=== PATIENT | male | born 1950 | race Caucasian/White ===

== ENCOUNTER 2019-05-21 00:18 | Observation (INO) ==
[2019-05-21] MEDS ORDERED: Isovue-370 500 ML BOTTLE IVP ONE ×2 (00:22→06:22)
[2019-05-21 00:53] LABS: Basophils % 0.5 %; Eosinophils % 0.9 %; Hematocrit 42.4 % (37.5-50.1); Hemoglobin 14.6 g/dL (12.9-16.9); Immature Granulocytes % 0.5 % (0-4); Lymphocytes % 23.6 %; Mean Corpuscular HGB Conc 34.4 g/dL (31.6-35.5); Mean Corpuscular Hemoglobin 29.4 pg (28.0-33.3); Mean Corpuscular Volume 85.3 fL (83.0-100.0); Mean Platelet Volume 8.7 fL (9.4-12.4); Monocytes # 0.5 K/mcL (0.0-1.3); Monocytes % 11.3 %; Neutrophils # 2.7 K/mcL (1.6-8.9); Red Blood Count 4.97 M/mcL (4.19-5.50); Red Cell Distribution Width 13.2 % (11.5-14.5); Segmented Neutrophils % 63.2 %; White Blood Count 4.2 K/mcL (4.3-11.1)
[2019-05-21 00:58] LABS: Platelet Count 95 K/mcL (140-400)
[2019-05-21 01:04] LABS: Prothrombin Time 11.9 Seconds (9.4-12.1)
[2019-05-21 01:07] LABS: Activated Partial Thrombo Time 32.6 Seconds (26.0-36.0)
[2019-05-21 01:14] LABS: Troponin I < 0.03 ng/mL (< 0.04)
[2019-05-21 01:19] LABS: Alanine Aminotransferase 36 Units/L (7-52); Albumin 3.8 g/dL (3.5-5.7); Albumin/Globulin Ratio 1.6 (1.1-2.2); Alkaline Phosphatase 51 Units/L (34-104); Aspartate Amino Transferase 19 Units/L (13-39); BUN/Creatinine Ratio 17 (6-26); Bilirubin,Total 0.5 mg/dL (0.3-1.0); Blood Urea Nitrogen 20 mg/dL (8-23); Calcium 9.3 mg/dL (8.6-10.3); Carbon Dioxide 30 mEq/L (23-29); Chloride 102 mEq/L (98-107); Globulin 2.4 g/dL (2.4-3.5); Glucose 120 mg/dL (70-105); Osmolality,Calculated 292 (280-300); Potassium 3.8 mEq/L (3.5-5.1); Sodium 139 mEq/L (136-145); Total Protein 6.2 g/dL (6.4-8.9); Valproate 108 mcg/mL (50-100); eGFR For African Americans > 60 (> 60); eGFR For Non-African Americans > 60 (> 60)
[2019-05-21 01:36] LABS: Thyroid Stimulating Hormone 4.618 mcIU/mL (0.340-5.600)
[2019-05-21 02:32] LABS: Bilirubin,Urine Negative (Negative); Blood,Urine Trace-intact (Negative); Clarity,Urine Slightly Cloudy (Clear); Color,Urine Yellow (Yellow); Glucose,Urine (UA) Normal (Normal); Ketones,Urine Negative (Negative); Leukocyte Esterase,Urine Negative (Negative); Nitrite,Urine Negative (Negative); PH,Urine 6.5 pH Units (5.0-8.0); Protein,Urine Negative (Neg-Trace)
[2019-05-21 02:40] LABS: Mucus,Urine Few per lpf (Few); Squamous Epithelial Cell,Urine Few per lpf (None-Few)
[2019-05-21 02:42] LABS: Bacteria,Urine Many per hpf (None-Few); Renal Epithelial Cells,Urine Few per hpf (None-Few); Transitional Epi Cells,Urine Few per hpf (None-Few)
[2019-05-21 02:44] LABS: WBC,Urine 0-3 per hpf (0-3)
[2019-05-21] MEDS ORDERED: Naloxone 0.4 MG/ML INJ IVP PRN (06:22)
[2019-05-21] MEDS ORDERED: Furosemide 20 MG TABLET PO SCH (09:00)
[2019-05-21] MEDS: OLANZapine 10 MG TAB.RAPDIS PO SCH ×2 (09:26→20:33)
[2019-05-21] MEDS: Finasteride 5 MG TABLET PO SCH (09:26)
[2019-05-21] MEDS: Aspirin Enteric Coated 81 MG Tablet PO SCH (09:27)
[2019-05-21] MEDS: Cholecalciferol (D-3) 1,000 UNIT (25MCG) TABLET PO SCH (09:27)
[2019-05-21] MEDS: Furosemide 40 MG TABLET PO SCH (09:27)
[2019-05-21] MEDS: Multivit/Ca/Min/Fe/FA 1 TAB TABLET PO SCH (09:27)
[2019-05-21] MEDS ORDERED: 0.9 % Sodium Chloride 1,000 ML IV SCH (13:00)
[2019-05-21] MEDS: cefTRIAXone 2,000 MG in Water for inj. (sterile) 20 ML IVP SCH (15:46)
[2019-05-21] MEDS: clonazePAM 0.5 MG TABLET PO SCH (20:33)
[2019-05-21] MEDS ORDERED: Melatonin 3 MG TABLET PO SCH (21:00)
[2019-05-21] MEDS ORDERED: Divalproex (12 HR) 250 MG TABLET PO SCH (21:00)
[2019-05-21] MEDS ORDERED: risperiDONE 1 MG TABLET PO SCH (21:00)
[2019-05-21] MEDS ORDERED: traZODone 50 MG TABLET PO SCH (21:00)
[2019-05-22 07:06] LABS: Hematocrit 40.3 % (37.5-50.1); Hemoglobin 13.7 g/dL (12.9-16.9); Mean Corpuscular Hemoglobin 29.3 pg (28.0-33.3); Mean Corpuscular Volume 86.3 fL (83.0-100.0); Mean Platelet Volume 9.4 fL (9.4-12.4); Red Blood Count 4.67 M/mcL (4.19-5.50); Red Cell Distribution Width 13.4 % (11.5-14.5); White Blood Count 4.8 K/mcL (4.3-11.1)
[2019-05-22 07:21] LABS: Platelet Count 94 K/mcL (140-400)
[2019-05-22 07:24] LABS: BUN/Creatinine Ratio 23 (6-26); Blood Urea Nitrogen 25 mg/dL (8-23); Calcium 8.7 mg/dL (8.6-10.3); Carbon Dioxide 29 mEq/L (23-29); Chloride 106 mEq/L (98-107); Glucose 104 mg/dL (70-105); Osmolality,Calculated 303 (280-300); Potassium 3.7 mEq/L (3.5-5.1); Sodium 144 mEq/L (136-145); eGFR For African Americans > 60 (> 60); eGFR For Non-African Americans > 60 (> 60)
[2019-05-22] MEDS: cefTRIAXone 2,000 MG in Water for inj. (sterile) 20 ML IVP SCH (08:27)
[2019-05-22] MEDS: clonazePAM 0.5 MG TABLET PO SCH (08:28)
[2019-05-22] MEDS: Finasteride 5 MG TABLET PO SCH (08:28)
[2019-05-22] MEDS: OLANZapine 10 MG TAB.RAPDIS PO SCH (08:28)
[2019-05-22] MEDS: Aspirin Enteric Coated 81 MG Tablet PO SCH (08:29)
[2019-05-22] MEDS: Cholecalciferol (D-3) 1,000 UNIT (25MCG) TABLET PO SCH (08:29)
[2019-05-22] MEDS: Furosemide 40 MG TABLET PO SCH (08:29)
[2019-05-22] MEDS: Multivit/Ca/Min/Fe/FA 1 TAB TABLET PO SCH (08:29)
[2019-05-22] MEDS ORDERED: Divalproex (12 HR) 250 MG TABLET PO SCH (09:00)
[2019-05-22 10:23] VITALS: BP 123/90
== END 2019-05-22 14:00 | disposition home or self-care (01) ==
LOC: EMEROOPIK 00:18 → INPPIK 00:18
PROVIDERS: ADMIT Family Medicine; ATTEND Family Medicine

== ENCOUNTER 2019-10-24 10:04 | Observation (INO) ==
[2019-10-24 10:47] LABS: Basophils % 0.6 %; Eosinophils % 0.9 %; Hematocrit 46.4 % (37.5-50.1); Hemoglobin 15.9 g/dL (12.9-16.9); Immature Granulocytes % 0.3 % (0-4); Lymphocytes # 0.7 K/mcL (0.6-4.6); Lymphocytes % 18.6 %; Mean Corpuscular HGB Conc 34.3 g/dL (31.6-35.5); Mean Corpuscular Hemoglobin 30.1 pg (28.0-33.3); Mean Corpuscular Volume 87.9 fL (83.0-100.0); Mean Platelet Volume 9.4 fL (9.4-12.4); Monocytes # 0.4 K/mcL (0.0-1.3); Monocytes % 11.5 %; Neutrophils # 2.4 K/mcL (1.6-8.9); Red Blood Count 5.28 M/mcL (4.19-5.50); Red Cell Distribution Width 14.1 % (11.5-14.5); Segmented Neutrophils % 68.1 %; White Blood Count 3.5 K/mcL (4.3-11.1)
[2019-10-24 10:49] LABS: Platelet Count 99 K/mcL (140-400)
[2019-10-24 10:54] LABS: Prothrombin Time 11.9 Seconds (9.4-12.1)
[2019-10-24 10:57] LABS: Activated Partial Thrombo Time 30.7 Seconds (26.0-36.0)
[2019-10-24 11:01] LABS: BUN/Creatinine Ratio 20 (6-26); Blood Urea Nitrogen 22 mg/dL (8-23); Calcium 8.9 mg/dL (8.6-10.3); Carbon Dioxide 30 mEq/L (23-29); Chloride 106 mEq/L (98-107); Glucose 108 mg/dL (70-105); Magnesium 1.8 mg/dL (1.6-2.6); Osmolality,Calculated 304 (280-300); Potassium 3.3 mEq/L (3.5-5.1); Sodium 145 mEq/L (136-145); eGFR For African Americans > 60 (> 60); eGFR For Non-African Americans > 60 (> 60)
[2019-10-24 11:07] LABS: Troponin I < 0.03 ng/mL (< 0.04)
[2019-10-24 11:19] LABS: Thyroid Stimulating Hormone 2.026 mcIU/mL (0.340-5.600)
[2019-10-24] MEDS ORDERED: Naloxone 0.4 MG/ML INJ IVP PRN (12:55)
[2019-10-24] MEDS ORDERED: Ondansetron ODT 4 MG TAB.RAPDIS SL PRN (12:55)
[2019-10-24] MEDS ORDERED: Ibuprofen 400 MG TABLET PO PRN (13:27)
[2019-10-24] MEDS: 0.9 % Sodium Chloride 1,000 ML IVC SCH ×2 (13:42→15:36)
[2019-10-24] MEDS ORDERED: *HR* Enoxaparin 40 MG/0.4 ML SYRINGE SQ SCH (14:00)
[2019-10-24] MEDS ORDERED: 0.9 % Sodium Chloride 500 ML IV ONE (15:01)
[2019-10-24] MEDS: *HR* Enoxaparin 150 MG/ML SYRINGE SQ SCH (16:41)
[2019-10-24] MEDS ORDERED: traZODone 50 MG TABLET PO SCH (21:00)
[2019-10-24] MEDS ORDERED: Divalproex (12 HR) 250 MG TABLET PO SCH (21:00)
[2019-10-24] MEDS ORDERED: Melatonin 3 MG TABLET PO SCH (21:00)
[2019-10-24] MEDS ORDERED: QUEtiapine Fumarate 100 MG TABLET PO SCH (21:00)
[2019-10-25] MEDS: Nystatin POWDER 30 GM BOTTLE TP SCH ×2 (03:23→08:44)
[2019-10-25 04:31] LABS: Basophils % 0.8 %; Eosinophils # 0.1 K/mcL (0.0-0.6); Hematocrit 41.1 % (37.5-50.1); Hemoglobin 14.1 g/dL (12.9-16.9); Immature Granulocytes % 0.8 % (0-4); Lymphocytes # 1.7 K/mcL (0.6-4.6); Lymphocytes % 42.7 %; Mean Corpuscular HGB Conc 34.3 g/dL (31.6-35.5); Mean Corpuscular Hemoglobin 30.3 pg (28.0-33.3); Mean Corpuscular Volume 88.4 fL (83.0-100.0); Mean Platelet Volume 9.5 fL (9.4-12.4); Monocytes # 0.5 K/mcL (0.0-1.3); Monocytes % 12.5 %; Neutrophils # 1.6 K/mcL (1.6-8.9); Red Blood Count 4.65 M/mcL (4.19-5.50); Red Cell Distribution Width 14.2 % (11.5-14.5); Segmented Neutrophils % 41.2 %; White Blood Count 3.9 K/mcL (4.3-11.1)
[2019-10-25 04:44] LABS: Platelet Count 98 K/mcL (140-400)
[2019-10-25] MEDS: *HR* Enoxaparin 150 MG/ML SYRINGE SQ SCH (05:15)
[2019-10-25 06:09] LABS: BUN/Creatinine Ratio 21 (6-26); Blood Urea Nitrogen 21 mg/dL (8-23); Calcium 8.3 mg/dL (8.6-10.3); Carbon Dioxide 31 mEq/L (23-29); Chloride 104 mEq/L (98-107); Glucose 85 mg/dL (70-105); Osmolality,Calculated 294 (280-300); Potassium 3.6 mEq/L (3.5-5.1); Sodium 141 mEq/L (136-145); eGFR For African Americans > 60 (> 60); eGFR For Non-African Americans > 60 (> 60)
[2019-10-25] MEDS ORDERED: lisinopriL 5 MG TABLET PO SCH (09:00)
[2019-10-25] MEDS ORDERED: Aspirin Enteric Coated 81 MG Tablet PO SCH (09:00)
[2019-10-25] MEDS ORDERED: Cholecalciferol (D-3) 1,000 UNIT (25MCG) TABLET PO SCH (09:00)
[2019-10-25] MEDS ORDERED: Divalproex (12 HR) 250 MG TABLET PO SCH (09:00)
[2019-10-25] MEDS ORDERED: Finasteride 5 MG TABLET PO SCH (09:00)
[2019-10-25] MEDS ORDERED: Furosemide 40 MG TABLET PO SCH (09:00)
[2019-10-25 09:48] LABS: Chol/HDL Ratio 2.7 (0-4.9)
[2019-10-25 14:08] VITALS: BP 113/79
[2019-10-26] MEDS ORDERED: Furosemide 40 MG TABLET PO SCH (09:00)
== END 2019-10-25 16:09 | disposition home or self-care (01) ==
LOC: INPPIK 10:04 → EMEROOPIK 10:04 → INPPIK 12:37
PROVIDERS: ADMIT Family Medicine; ATTEND Family Medicine

== ENCOUNTER 2019-12-11 09:32 | Observation (INO) ==
[2019-12-11 10:11] LABS: Basophils % 0.4 %; Eosinophils # 0.1 K/mcL (0.0-0.6); Eosinophils % 1.7 %; Hematocrit 47.6 % (37.5-50.1); Hemoglobin 16.5 g/dL (12.9-16.9); Immature Granulocytes % 0.2 % (0-4); Lymphocytes % 22.2 %; Mean Corpuscular HGB Conc 34.7 g/dL (31.6-35.5); Mean Corpuscular Hemoglobin 30.4 pg (28.0-33.3); Mean Corpuscular Volume 87.8 fL (83.0-100.0); Mean Platelet Volume 9.1 fL (9.4-12.4); Monocytes # 0.6 K/mcL (0.0-1.3); Platelet Count 105 K/mcL (140-400); Red Blood Count 5.42 M/mcL (4.19-5.50); Red Cell Distribution Width 13.1 % (11.5-14.5); Segmented Neutrophils % 63.5 %; White Blood Count 4.7 K/mcL (4.3-11.1)
[2019-12-11 10:35] LABS: Alanine Aminotransferase 30 Units/L (7-52); Albumin 3.6 g/dL (3.5-5.7); Albumin/Globulin Ratio 1.5 (1.1-2.2); Alkaline Phosphatase 52 Units/L (34-104); Aspartate Amino Transferase 18 Units/L (13-39); BUN/Creatinine Ratio 20 (6-26); Bilirubin,Total 0.9 mg/dL (0.3-1.0); Blood Urea Nitrogen 21 mg/dL (8-23); Calcium 8.5 mg/dL (8.6-10.3); Carbon Dioxide 28 mEq/L (23-29); Chloride 103 mEq/L (98-107); Globulin 2.4 g/dL (2.4-3.5); Glucose 102 mg/dL (70-105); Osmolality,Calculated 295 (280-300); Potassium 3.6 mEq/L (3.5-5.1); Sodium 141 mEq/L (136-145); Valproate 104 mcg/mL (50-100); eGFR For African Americans > 60 (> 60); eGFR For Non-African Americans > 60 (> 60)
[2019-12-11 10:49] LABS: Bilirubin,Urine Negative (Negative); Blood,Urine Negative (Negative); Clarity,Urine Clear (Clear); Color,Urine Yellow (Yellow); Glucose,Urine (UA) Normal (Normal); Ketones,Urine Negative (Negative); Leukocyte Esterase,Urine Negative (Negative); Nitrite,Urine Negative (Negative); Protein,Urine Negative (Neg-Trace); Urobilinogen,Urine Normal (Normal)
[2019-12-11] MEDS ORDERED: Ondansetron 4 MG/2 ML VIAL IVP PRN (13:19)
[2019-12-11] MEDS ORDERED: MOM Conc 10 ML UD.LIQ PO PRN (13:19)
[2019-12-11] MEDS ORDERED: Naloxone 0.4 MG/ML INJ IVP PRN (13:19)
[2019-12-11] MEDS ORDERED: Acetaminophen 325 MG TABLET PO PRN (17:59)
[2019-12-11] MEDS ORDERED: D5% in Water 1,000 ML IVC PRN (18:21)
[2019-12-11] MEDS ORDERED: *HR* Dextrose 50 % in Water (Vial) 50 ML VIAL IVP PRN (18:21)
[2019-12-11] MEDS ORDERED: Dextrose Gel 15 GM/37.5 ML TUBE PO PRN ×2 (18:21)
[2019-12-11] MEDS ORDERED: Insulin LISPRO 300 UNITS/3 ML VIAL SQ SCH (21:00)
[2019-12-11] MEDS: QUEtiapine Fumarate 100 MG TABLET PO SCH (22:33)
[2019-12-11] MEDS: Melatonin 3 MG TABLET PO SCH (22:33)
[2019-12-11] MEDS: risperiDONE 0.25 MG TABLET PO SCH (22:33)
[2019-12-12 05:51] LABS: Basophils % 0.4 %; Eosinophils # 0.1 K/mcL (0.0-0.6); Eosinophils % 2.4 %; Hematocrit 46.1 % (37.5-50.1); Hemoglobin 15.8 g/dL (12.9-16.9); Immature Granulocytes % 0.4 % (0-4); Lymphocytes # 1.5 K/mcL (0.6-4.6); Lymphocytes % 28.9 %; Mean Corpuscular HGB Conc 34.3 g/dL (31.6-35.5); Mean Corpuscular Hemoglobin 30.4 pg (28.0-33.3); Mean Corpuscular Volume 88.7 fL (83.0-100.0); Mean Platelet Volume 9.3 fL (9.4-12.4); Monocytes # 0.6 K/mcL (0.0-1.3); Monocytes % 12.3 %; Neutrophils # 2.8 K/mcL (1.6-8.9); Platelet Count 100 K/mcL (140-400); Red Cell Distribution Width 13.1 % (11.5-14.5); Segmented Neutrophils % 55.6 %; White Blood Count 5.1 K/mcL (4.3-11.1)
[2019-12-12 06:32] LABS: BUN/Creatinine Ratio 20 (6-26); Blood Urea Nitrogen 24 mg/dL (8-23); Calcium 8.9 mg/dL (8.6-10.3); Carbon Dioxide 31 mEq/L (23-29); Chloride 102 mEq/L (98-107); Glucose 93 mg/dL (70-105); Osmolality,Calculated 298 (280-300); Potassium 3.7 mEq/L (3.5-5.1); Sodium 142 mEq/L (136-145); eGFR For African Americans > 60 (> 60); eGFR For Non-African Americans 59 (> 60)
[2019-12-12] MEDS: Insulin LISPRO 300 UNITS/3 ML VIAL SQ SCH ×3 (07:39→16:50)
[2019-12-12] MEDS ORDERED: Furosemide 40 MG TABLET PO SCH (09:00)
[2019-12-12] MEDS ORDERED: lisinopriL 5 MG TABLET PO SCH (09:00)
[2019-12-12] MEDS ORDERED: Aspirin Enteric Coated 81 MG Tablet PO SCH (09:00)
[2019-12-12 18:19] VITALS: BP 155/98
[2019-12-12] MEDS: risperiDONE 0.25 MG TABLET PO SCH (21:06)
[2019-12-12] MEDS: Melatonin 3 MG TABLET PO SCH (21:06)
[2019-12-12] MEDS: QUEtiapine Fumarate 100 MG TABLET PO SCH (21:06)
== END 2019-12-12 21:20 ==
LOC: EMEROOPIK 09:32 → INPPIK 09:32
PROVIDERS: ADMIT Family Medicine; ATTEND Family Medicine

== ENCOUNTER 2021-09-12 18:20 | Inpatient (IN) ==
[2021-09-12] MEDS ORDERED: cefTRIAXone 1,000 MG in 0.9 % Sodium Chloride Mini Bag 100 ML IVPB ONE (20:44)
[2021-09-12 21:23] LABS: Basophils % 0.4 %; Eosinophils % 0.7 %; Hematocrit 35.4 % (37.5-50.1); Hemoglobin 11.6 g/dL (12.9-16.9); Immature Granulocytes % 0.4 % (0-4); Lymphocytes # 0.5 K/mcL (0.6-4.6); Lymphocytes % 16.8 %; Mean Corpuscular HGB Conc 32.8 g/dL (31.6-35.5); Mean Corpuscular Hemoglobin 29.1 pg (28.0-33.3); Mean Corpuscular Volume 88.7 fL (83.0-100.0); Mean Platelet Volume 9.6 fL (9.4-12.4); Monocytes # 0.3 K/mcL (0.0-1.3); Monocytes % 9.5 %; Platelet Count 121 K/mcL (140-400); Red Blood Count 3.99 M/mcL (4.19-5.50); Red Cell Distribution Width 13.4 % (11.5-14.5); Segmented Neutrophils % 72.2 %; White Blood Count 2.7 K/mcL (4.3-11.1)
[2021-09-12 21:40] LABS: BUN/Creatinine Ratio 30 (6-26); Blood Urea Nitrogen 28 mg/dL (8-23); Calcium 8.9 mg/dL (8.6-10.3); Carbon Dioxide 30 mEq/L (23-29); Chloride 110 mEq/L (98-107); Glucose 111 mg/dL (70-105); Osmolality,Calculated 312 (280-300); Potassium 3.6 mEq/L (3.5-5.1); Sodium 148 mEq/L (136-145); eGFR For African Americans > 60 (> 60); eGFR For Non-African Americans > 60 (> 60)
[2021-09-12 21:46] LABS: Bilirubin,Urine Negative (Negative); Blood,Urine Small (Negative); Clarity,Urine Slightly Cloudy (Clear); Color,Urine Dark Yellow (Yellow); Glucose,Urine (UA) Normal (Normal); Ketones,Urine Trace mg/dL (Negative); Leukocyte Esterase,Urine Trace (Negative); Nitrite,Urine Negative (Negative); PH,Urine 6.5 pH Units (5.0-8.0); Protein,Urine Trace mg/dL (Neg-Trace); Specific Gravity,Urine 1.025 (1.010-1.025)
[2021-09-12 22:00] LABS: Bacteria,Urine Few per hpf (None-Few); Mucus,Urine Moderate per lpf (None-Few); Squamous Epithelial Cell,Urine Few per hpf (None-Few)
[2021-09-12] MEDS ORDERED: Azithromycin 500 MG in 0.9 % Sodium Chloride 250 ML IVPB ONE (23:10)
[2021-09-13] MEDS ORDERED: polyethylene glycoL 3350 17 GM POWD.PACK PO PRN (02:02)
[2021-09-13] MEDS ORDERED: Acetaminophen 325 MG TABLET PO PRN (02:02)
[2021-09-13] MEDS ORDERED: Ibuprofen 400 MG TABLET PO PRN (02:12)
[2021-09-13] MEDS ORDERED: [UNRECOGNIZED DRUG - OTHER] RC SCH (09:00)
[2021-09-13] MEDS ORDERED: NA PHOS DI BA RC SCH (09:00)
[2021-09-13] MEDS ORDERED: cefTRIAXone 2,000 MG in 0.9 % Sodium Chloride Mini Bag 100 ML IVPB SCH (09:00)
[2021-09-13] MEDS ORDERED: NA PHOS M B RC SCH (09:00)
[2021-09-13] MEDS ORDERED: SOLIFENACIN SUCCINATE 5 MG PO SCH (09:00)
[2021-09-13] MEDS ORDERED: Furosemide 40 MG TABLET PO SCH (09:00)
[2021-09-13] MEDS: cefTRIAXone 2,000 MG in 0.9 % Sodium Chloride Mini Bag 100 ML IVPB SCH (09:34)
[2021-09-13] MEDS: risperiDONE 1 MG TABLET PO SCH ×2 (09:34→21:35)
[2021-09-13] MEDS: Divalproex (12 HR) 250 MG TABLET PO SCH ×2 (09:34→21:35)
[2021-09-13] MEDS: Aspirin Enteric Coated 81 MG Tablet PO SCH (09:34)
[2021-09-13] MEDS: Vitamin E 200 UNIT (90MG) CAPSULE PO SCH (09:34)
[2021-09-13] MEDS: Apixaban 5 MG TABLET PO SCH ×2 (09:35→21:34)
[2021-09-13] MEDS: QUEtiapine Fumarate 25 MG TABLET PO SCH (09:35)
[2021-09-13] MEDS: Nystatin POWDER 30 GM BOTTLE TP SCH ×2 (09:35→21:36)
[2021-09-13] MEDS: lisinopriL 5 MG TABLET PO SCH (09:35)
[2021-09-13] MEDS: Multivit/Ca/Min/Fe/FA 1 TAB TABLET PO SCH (09:35)
[2021-09-13] MEDS: Finasteride 5 MG TABLET PO SCH (09:35)
[2021-09-13] MEDS: Doxycycline 100 MG in 0.9 % Sodium Chloride Mini Bag 100 ML IVPB SCH ×2 (11:23→23:36)
[2021-09-13 15:01] LABS: Adenovirus Not Detected (Not Detect); Bordetella Pertussis Not Detected (Not Detect); Chlamydophila pneumoniae Not Detected (Not Detect); Coronavirus 229E Not Detected (Not Detect); Coronavirus HKU1 Not Detected (Not Detect); Coronavirus NL63 Not Detected (Not Detect); Coronavirus OC43 Not Detected (Not Detect); Human Metapneumovirus Not Detected (Not Detect); Human Rhinovirus/Enterovirus Not Detected (Not Detect); Influenza A Subtype 2009 H1 Not Detected (Not Detect); Influenza B Not Detected (Not Detect); Mycoplasma pneumoniae Not Detected (Not Detect); Parainfluenza Virus 1 Not Detected (Not Detect); Parainfluenza Virus 2 Not Detected (Not Detect); Parainfluenza Virus 3 Not Detected (Not Detect); Parainfluenza Virus 4 Not Detected (Not Detect); Respiratory Syncytial Virus Not Detected (Not Detect); SARS-CoV-2 Not Detected (Not Detect)
[2021-09-13] MEDS: QUEtiapine Fumarate 100 MG TABLET PO SCH (21:34)
[2021-09-14 07:02] LABS: Hematocrit 32.4 % (37.5-50.1); Hemoglobin 10.6 g/dL (12.9-16.9); Mean Corpuscular HGB Conc 32.7 g/dL (31.6-35.5); Mean Corpuscular Hemoglobin 28.6 pg (28.0-33.3); Mean Corpuscular Volume 87.3 fL (83.0-100.0); Mean Platelet Volume 9.4 fL (9.4-12.4); Platelet Count 116 K/mcL (140-400); Red Blood Count 3.71 M/mcL (4.19-5.50); White Blood Count 3.7 K/mcL (4.3-11.1)
[2021-09-14] MEDS: Vitamin E 200 UNIT (90MG) CAPSULE PO SCH (08:07)
[2021-09-14] MEDS: Aspirin Enteric Coated 81 MG Tablet PO SCH (08:07)
[2021-09-14] MEDS: Divalproex (12 HR) 250 MG TABLET PO SCH ×2 (08:07→20:10)
[2021-09-14] MEDS: cefTRIAXone 2,000 MG in 0.9 % Sodium Chloride Mini Bag 100 ML IVPB SCH (08:08)
[2021-09-14] MEDS: risperiDONE 1 MG TABLET PO SCH ×2 (08:08→20:09)
[2021-09-14] MEDS: QUEtiapine Fumarate 25 MG TABLET PO SCH (08:08)
[2021-09-14] MEDS: Apixaban 5 MG TABLET PO SCH ×2 (08:08→20:09)
[2021-09-14] MEDS: lisinopriL 5 MG TABLET PO SCH (08:08)
[2021-09-14] MEDS: Finasteride 5 MG TABLET PO SCH (08:08)
[2021-09-14] MEDS: Multivit/Ca/Min/Fe/FA 1 TAB TABLET PO SCH (08:08)
[2021-09-14] MEDS: Nystatin POWDER 30 GM BOTTLE TP SCH ×2 (08:10→20:12)
[2021-09-14 08:26] LABS: BUN/Creatinine Ratio 29 (6-26); Blood Urea Nitrogen 26 mg/dL (8-23); Calcium 8.5 mg/dL (8.6-10.3); Carbon Dioxide 31 mEq/L (23-29); Chloride 107 mEq/L (98-107); Glucose 81 mg/dL (70-105); Osmolality,Calculated 300 (280-300); Potassium 3.5 mEq/L (3.5-5.1); Sodium 143 mEq/L (136-145); eGFR For African Americans > 60 (> 60); eGFR For Non-African Americans > 60 (> 60)
[2021-09-14] MEDS: Doxycycline 100 MG in 0.9 % Sodium Chloride Mini Bag 100 ML IVPB SCH (12:57)
[2021-09-14] MEDS: QUEtiapine Fumarate 100 MG TABLET PO SCH (20:09)
[2021-09-15] MEDS: Doxycycline 100 MG in 0.9 % Sodium Chloride Mini Bag 100 ML IVPB SCH ×2 (01:06→11:02)
[2021-09-15 06:27] VITALS: PULSE 85
[2021-09-15 08:12] LABS: Hematocrit 35.8 % (37.5-50.1); Hemoglobin 12.1 g/dL (12.9-16.9); Mean Corpuscular HGB Conc 33.8 g/dL (31.6-35.5); Mean Corpuscular Hemoglobin 28.8 pg (28.0-33.3); Mean Corpuscular Volume 85.2 fL (83.0-100.0); Mean Platelet Volume 9.4 fL (9.4-12.4); Platelet Count 153 K/mcL (140-400); Red Cell Distribution Width 12.7 % (11.5-14.5); White Blood Count 4.9 K/mcL (4.3-11.1)
[2021-09-15 08:32] LABS: BUN/Creatinine Ratio 24 (6-26); Blood Urea Nitrogen 24 mg/dL (8-23); Calcium 8.7 mg/dL (8.6-10.3); Carbon Dioxide 26 mEq/L (23-29); Chloride 106 mEq/L (98-107); Glucose 111 mg/dL (70-105); Osmolality,Calculated 297 (280-300); Potassium 3.6 mEq/L (3.5-5.1); Sodium 141 mEq/L (136-145); eGFR For African Americans > 60 (> 60); eGFR For Non-African Americans > 60 (> 60)
[2021-09-15] MEDS: cefTRIAXone 2,000 MG in 0.9 % Sodium Chloride Mini Bag 100 ML IVPB SCH (09:15)
[2021-09-15] MEDS: risperiDONE 1 MG TABLET PO SCH (09:15)
[2021-09-15] MEDS: QUEtiapine Fumarate 25 MG TABLET PO SCH (09:15)
[2021-09-15] MEDS: Vitamin E 200 UNIT (90MG) CAPSULE PO SCH (09:15)
[2021-09-15] MEDS: Finasteride 5 MG TABLET PO SCH (09:15)
[2021-09-15] MEDS: Apixaban 5 MG TABLET PO SCH (09:15)
[2021-09-15] MEDS: Multivit/Ca/Min/Fe/FA 1 TAB TABLET PO SCH (09:15)
[2021-09-15] MEDS: Divalproex (12 HR) 250 MG TABLET PO SCH (09:15)
[2021-09-15] MEDS: lisinopriL 5 MG TABLET PO SCH (09:15)
[2021-09-15] MEDS: Aspirin Enteric Coated 81 MG Tablet PO SCH (09:15)
[2021-09-15] MEDS: Nystatin POWDER 30 GM BOTTLE TP SCH (09:21)
[2021-09-15 11:04] VITALS: BP 99/61; RESP 17; TEMP 97.3; O2SAT 96
[2021-09-16] MEDS ORDERED: Cholecalciferol (D-3) 1,000 UNIT (25MCG) TABLET PO SCH (09:00)
== END 2021-09-15 17:18 | disposition home or self-care (01) | DRG 871 ==
LOC: EMEROOPIK 18:20 → INPPIK 18:20 → SUATTDRO 09-13 01:07
PROVIDERS: ADMIT Internal Medicine; ATTEND Family Medicine

== ENCOUNTER 2021-09-15 18:44 | Observation (INO) ==
[2021-09-15 19:04] LABS: Bilirubin,Urine Negative (Negative); Blood,Urine Negative (Negative); Clarity,Urine Clear (Clear); Color,Urine Yellow (Yellow); Glucose,Urine (UA) Normal (Normal); Ketones,Urine Negative (Negative); Leukocyte Esterase,Urine Negative (Negative); Nitrite,Urine Negative (Negative); Protein,Urine Negative (Neg-Trace); Urobilinogen,Urine Normal (Normal)
[2021-09-15 19:15] LABS: Basophils % 0.3 %; Eosinophils % 0.3 %; Hematocrit 37.5 % (37.5-50.1); Hemoglobin 12.5 g/dL (12.9-16.9); Immature Granulocytes % 0.3 % (0-4); Lymphocytes # 0.8 K/mcL (0.6-4.6); Lymphocytes % 13.4 %; Mean Corpuscular HGB Conc 33.3 g/dL (31.6-35.5); Mean Platelet Volume 9.4 fL (9.4-12.4); Monocytes # 0.5 K/mcL (0.0-1.3); Monocytes % 7.5 %; Neutrophils # 4.7 K/mcL (1.6-8.9); Platelet Count 156 K/mcL (140-400); Red Blood Count 4.31 M/mcL (4.19-5.50); Red Cell Distribution Width 12.7 % (11.5-14.5); Segmented Neutrophils % 78.2 %
[2021-09-15 19:34] LABS: BUN/Creatinine Ratio 20 (6-26); Blood Urea Nitrogen 23 mg/dL (8-23); Calcium 8.9 mg/dL (8.6-10.3); Carbon Dioxide 26 mEq/L (23-29); Chloride 106 mEq/L (98-107); Glucose 136 mg/dL (70-105); Osmolality,Calculated 302 (280-300); Potassium 3.4 mEq/L (3.5-5.1); Sodium 143 mEq/L (136-145); eGFR For African Americans > 60 (> 60); eGFR For Non-African Americans > 60 (> 60)
[2021-09-15 19:38] LABS: Troponin I < 0.03 ng/mL (< 0.04)
[2021-09-16] MEDS ORDERED: Naloxone 0.4 MG/ML INJ IVP PRN (01:25)
[2021-09-16] MEDS: 0.9 % Sodium Chloride 1,000 ML IVC SCH ×2 (02:42→12:58)
[2021-09-16] MEDS ORDERED: Acetaminophen 325 MG TABLET PO PRN (11:18)
[2021-09-16] MEDS ORDERED: polyethylene glycoL 3350 17 GM POWD.PACK PO PRN (11:18)
[2021-09-16] MEDS ORDERED: [UNRECOGNIZED DRUG - OTHER] RC SCH (11:30)
[2021-09-16] MEDS ORDERED: SOLIFENACIN SUCCINATE 5 MG PO SCH (11:30)
[2021-09-16] MEDS ORDERED: NA PHOS DI BA RC SCH (11:30)
[2021-09-16] MEDS ORDERED: NA PHOS M B RC SCH (11:30)
[2021-09-16] MEDS: Apixaban 5 MG TABLET PO SCH ×2 (11:54→20:19)
[2021-09-16] MEDS: Aspirin Enteric Coated 81 MG Tablet PO SCH (11:54)
[2021-09-16] MEDS: QUEtiapine Fumarate 25 MG TABLET PO SCH (11:54)
[2021-09-16] MEDS: Cefdinir 300 MG CAPSULE PO SCH ×2 (11:54→20:20)
[2021-09-16] MEDS: Cholecalciferol (D-3) 1,000 UNIT (25MCG) TABLET PO SCH (11:55)
[2021-09-16] MEDS: Finasteride 5 MG TABLET PO SCH (11:55)
[2021-09-16] MEDS: Multivit/Ca/Min/Fe/FA 1 TAB TABLET PO SCH (11:55)
[2021-09-16] MEDS: risperiDONE 1 MG TABLET PO SCH ×2 (11:55→20:19)
[2021-09-16] MEDS: lisinopriL 5 MG TABLET PO SCH (11:55)
[2021-09-16] MEDS: Divalproex (12 HR) 250 MG TABLET PO SCH ×2 (11:55→20:19)
[2021-09-16] MEDS: Nystatin POWDER 30 GM BOTTLE TP SCH (20:20)
[2021-09-16] MEDS ORDERED: QUEtiapine Fumarate 100 MG TABLET PO SCH (21:00)
[2021-09-17] MEDS: Divalproex (12 HR) 250 MG TABLET PO SCH (08:33)
[2021-09-17] MEDS: Aspirin Enteric Coated 81 MG Tablet PO SCH (08:33)
[2021-09-17] MEDS: Apixaban 5 MG TABLET PO SCH (08:33)
[2021-09-17] MEDS: Cholecalciferol (D-3) 1,000 UNIT (25MCG) TABLET PO SCH (08:33)
[2021-09-17] MEDS: Finasteride 5 MG TABLET PO SCH (08:33)
[2021-09-17] MEDS: QUEtiapine Fumarate 25 MG TABLET PO SCH (08:34)
[2021-09-17] MEDS: risperiDONE 1 MG TABLET PO SCH (08:34)
[2021-09-17] MEDS: Multivit/Ca/Min/Fe/FA 1 TAB TABLET PO SCH (08:34)
[2021-09-17] MEDS: Cefdinir 300 MG CAPSULE PO SCH (08:34)
[2021-09-17] MEDS: lisinopriL 5 MG TABLET PO SCH (08:34)
[2021-09-17] MEDS: Nystatin POWDER 30 GM BOTTLE TP SCH (08:36)
[2021-09-17] MEDS ORDERED: Vitamin E 200 UNIT (90MG) CAPSULE PO SCH (09:00)
[2021-09-17 11:54] VITALS: BP 92/61; PULSE 71; RESP 17; TEMP 97.9; O2SAT 95
== END 2021-09-17 13:30 | disposition home or self-care (01) ==
LOC: EMEROOPIK 18:44 → INPPIK 18:44
PROVIDERS: ADMIT Internal Medicine; ATTEND Internal Medicine